=== PATIENT | female | born 1940 | race Caucasian/White ===

== ENCOUNTER 2017-07-24 11:39 | Emergency (ER) | payer OTHER ==
[~2017-07-24] VITALS: Ht 165.1 cm; Wt 85.7 kg
[~2017-07-24 11:39] MED LIST: ACETAMINOPHEN-120 ML PO; ADVAIR HFA115 MCG/21 INH; ALBUTEROL2.5 MG/31 INH; AMLODIPINE BESY10 MG PO; ASPIR 8181 M1 PO; ATIVAN0.5 MG PO; AZITHROMYCIN 2250 MG PO; BACTRIM DS TAB1 EACH PO; BIOFLEX TABLET1 EACH PO; CHONDROITIN S5000 GM MC; CITRACAL; CYCLOBENZAPRINE10 MG; DILAUDID 2 MG TA2 MG PO; DULCOLAX5 MG PO; DUONEB 2.5-0.5 M3 ML INH; FLEXERIL PO; FLUOXETINE HCL60 MG PO; FOSAMAX 70 MG T70 M1; GLUCOSAMINE HC500 MG PO; GLUCOSAMINE S1000 M2; Glucosamine Sulfate PO; HYDROCHLOROTHIA25 M1 PO; IBUPROFEN 200200 M1 PO; KLOR-CON 1010 MEQ PO; LEVAQUIN 500 M500 M2 PO; LOVASTATIN 20 M20 MG PO; MAXZIDE-25 MG1 EACH PO; MIRAPEX0.5 MG PO; MUCINEX600 MG; MULTIVITAMINS PO; NAPROSYN500 MG; NAPROSYN500 MG PO; NEURONTIN 300300 M1 PO; OMEPRAZOLE20 M2 PO; OXYGEN INH; PERCOCET 5-3251 EACH PO; PREDNISONE 10 M10 MG PO; PREDNISONE 20 M20 M1 PO; PREDNISONE50 MG PO; PROZAC 20 MG20 M1; PROZAC10 MG PO; Prozac PO; REQUIP 1 MG TABL1 M1; SIMVASTATIN40 MG; SPIRIVA INH; TRAMADOL 50 MG50 MG PO; TRIAMTERENE-HC1 EAC1 PO; ULORIC40 MG PO; VALACYCLOVIR1000 MG PO; VALTREX1000 MG PO; VENTOLIN HFA INH8 GM INH; VIT D 3 PO; VIT D3 PO; VITAMIN D2000 UNIT PO; ZPAK PO; [UNRECOGNIZED DRUG - OTHER] PO
[2017-07-24] MEDS ORDERED: NEXIUM40 MG PO (12:16)
[2017-07-24] MEDS ORDERED: ALBUTEROL (12:16)
[2017-07-24] MEDS ORDERED: CHONDROITIN SU500 G1 PO (12:17)
[2017-07-24] MEDS ORDERED: FLEXERIL PO (12:17)
[2017-07-24] MEDS ORDERED: GLUCOSAMINE HC500 MG PO (12:17)
[2017-07-24] MEDS ORDERED: PROAIR HFA8.5 GM (12:18)
[2017-07-24] MEDS ORDERED: NEURONTIN 300300 M1 PO (12:19)
[2017-07-24] MEDS ORDERED: LEVAQUIN 250 M250 MG PO (12:20)
[2017-07-24] MEDS ORDERED: PREDNISONE 10 M10 MG PO (13:57)
[2017-07-24] MEDS ORDERED: NORFLEX100 MG PO (13:57)
[2017-07-24 14:06] VITALS: BP 103/70
== END 2017-07-24 14:07 | disposition home or self-care (01) ==
LOC: M.ERS 11:39
DX: M19.90 Unspecified osteoarthritis, unspecified site (principal); M54.2 Cervicalgia; M54.12 Radiculopathy, cervical region; I10 Essential (primary) hypertension; J44.9 Chronic obstructive pulmonary disease, unspecified; K21.9 Gastro-esophageal reflux disease without esophagitis; Z90.710 Acquired absence of both cervix and uterus; Z88.5 Allergy status to narcotic agent; Z88.0 Allergy status to penicillin